=== PATIENT | male | born 1980 | race Caucasian/White ===

== ENCOUNTER 2024-08-19 07:53 | Day surgery (SDC) | payer MEDICARE, SELFPAY ==
[2024-08-19 08:15] VITALS: BP 126/77; PULSE 93; RESP 16; TEMP 36.8; O2SAT 95; BMI 25.8
[2024-08-19] MEDS: sodium chloride 0.9% 500 ML 15 ML IV (08:22)
--- NOTE | 2024-08-19 08:48 | ANES.PREANE2 ---
Pre-Anesthetic Assessment Height/Weight: Height 5 ft 10 in Weight 180 lb Temp Pulse Resp BP Pulse Ox O2 Del Method 98.3 F 93 16 126/77 95 Room Air 08/19/24 08:15 08/19/24 08:15 08/19/24 08:15 08/19/24 08:15 08/19/24 08:15 08/19/24 08:15 Preop Diagnosis: Screening colonoscopy Operation Date: 08/19/24 09:00 Proposed Procedures p Colonoscopy 33339, G0121, Z12.11(Not Applicable) - Parminder Winters MD Was Beta Srinivasa taken within 24 hours: N/A Was Clonidine taken within 24 hours: N/A Last intake: Intake Last Liquid Date 08/18/24 Last Liquid Time 16:00 Last Solid Date 08/17/24 Last Solid Time 18:00 Social Tobacco and No alcohol Exam alert, oriented x 3 and regular rate & rhythm Decreased breath sounds bilaterally Airway Submandibular: within normal limits Cervical ROM: within normal limits Mallampati: Class II Comments: Comments: Edentulous Anesthetic Plan ASA status: 3 Anesthesia: MAC Other: Patient denies any history of anesthesia issues Completed bowel prep Patient has a history of CHF, follows with cardiology. Recent echo was unremarkable he says but was told he had a small murmur. History of hypertension on lisinopril and metoprolol. Patient does admit to having a small cold, states he has a little congestion. Denies any fevers or chills. Diminished breath sounds bilaterally but no rhonchi or wheezing noted GERD on omeprazole Patient does admit to smoking nicotine and marijuana LACEY no treatment METs greater than 4 Plan for MAC anesthetic Medications/Allergies Home Medications ?Medication ?Instructions ?Recorded ?Confirmed ?Last Taken ?Type albuterol sulfate 90 mcg/actuation 2 puff inhalation QID PRN 08/07/24 08/14/24 08/18/24 History aerosol inhaler (Ventolin HFA) Shortness Of Breath cyclobenzaprine 10 mg tablet 10 mg PO BID PRN Spasms 08/07/24 08/14/24 08/18/24 History escitalopram oxalate 20 mg tablet 20 mg PO DAILY 08/07/24 08/14/24 08/18/24 History furosemide 40 mg tablet 40 mg PO DAILY 08/07/24 08/14/24 08/18/24 History lisinopril 40 mg tablet 40 mg PO DAILY 08/07/24 08/14/24 08/18/24 History meloxicam 7.5 mg tablet 7.5 mg PO BID 08/07/24 08/14/24 08/18/24 History metoprolol tartrate 25 mg tablet 25 mg PO DAILY 08/07/24 08/19/24 08/19/24 History omeprazole 20 mg capsule,delayed 20 mg PO BID 08/07/24 08/14/24 08/18/24 History release aspirin 81 mg tablet,delayed 81 mg PO DAILY 08/14/24 08/14/24 08/18/24 History release diphenhydramine HCl 50 mg capsule 100 mg PO BEDTIME 08/14/24 08/14/24 08/18/24 History igviyzyt-oi-fawez 300 mcg-K 60 1 tab PO DAILY 08/14/24 08/14/24 08/18/24 History mcg-lycop 600 mcg-lutein 300 mcg tablet (Men 50 Plus Multivitamin) Allergies Allergy/AdvReac Type Severity Reaction Status Date / Time codeine Allergy ALGY-Rash Verified 08/14/24 12:30 Penicillins Allergy ALGY-Rash Verified 08/14/24 12:30 Current Medications Generic Name Dose Route Start Last Admin Trade Name Freq PRN Reason Stop Dose Admin Sodium Chloride 500 mls @ 15 mls/hr 08/19/24 08:10 08/19/24 08:22 Sodium Chloride 0.9% IV 08/20/24 08:09 15 mls/hr .Q24H PRN Administration COLONOSCOPY FLUIDS PFSH Anesthesia Family History (Updated 08/07/24 @ 08:45 by ELHAM Wiggins) Father Heart disease Cancer prostate Diabetes Social History (Updated 08/07/24 @ 08:38 by ELHAM Wiggins) Smoking and tobacco/nicotine status: current every day tobacco/nicotine user cigarettes Data Anesthesia Cardiac Studies: No Data to Display
--- NOTE | 2024-08-19 09:03 | W.PM.OPSUD ---
Surgery/Procedure H&P Update DATE OF PROCEDURE: August 19, 2024 DATE H&P PERFORMED: 08/07/24 H&P UPDATE INFORMATION: I have reviewed H&P completed within last 30 days, I have examined patient prior to procedure and No changes to prior documentation PREOP DIAGNOSIS: Screening colonoscopy PLANNED PROCEDURE: Operation Date: 08/19/24 09:00 Proposed Procedures p Colonoscopy 30390, G0121, Z12.11(Not Applicable) - Parminder Winters MD
--- NOTE | 2024-08-19 09:04 | ANES.PREANE2 ---
Pre-Anesthetic Assessment Height/Weight: Height 1.78 m Weight 81.647 kg Temp Pulse Resp BP Pulse Ox O2 Del Method 98.3 F 93 16 126/77 95 Room Air 08/19/24 08:15 08/19/24 08:15 08/19/24 08:15 08/19/24 08:15 08/19/24 08:15 08/19/24 08:15 Preop Diagnosis: Screening colonoscopy Operation Date: 08/19/24 09:00 Proposed Procedures p Colonoscopy 87719, G0121, Z12.11(Not Applicable) - Parminder Winters MD Was Beta Srinivasa taken within 24 hours: Yes Last intake: Intake Last Liquid Date 08/18/24 Last Liquid Time 16:00 Last Solid Date 08/17/24 Last Solid Time 18:00 Social Tobacco (Occasional ETOH) Exam alert, oriented x 3, clear to auscultation bilaterally and regular rate & rhythm Distant hear tones Airway Submandibular: within normal limits Cervical ROM: within normal limits Mallampati: Class II Comments: Comments: Poor dentition Pulmonary Smoker CV/HEM Congestive Heart Failure and Murmur Pt. reports history of CHF 15+ years ago, takes medication as prescribed has not followed cardiology however reports having an echocardiogram done 3 months ago that was normal aside from a murmur . Pt. tolerates activity able to climb stairs without stopping denied CP/SOB Hepatic None reported GI Gastroesophageal Reflux Disease (Well controlled with prilosec) Metabolic None reported Neuropsych None reported Anesthetic Plan ASA status: 3 Anesthesia: MAC Medications/Allergies Home Medications ?Medication ?Instructions ?Recorded ?Confirmed ?Last Taken ?Type albuterol sulfate 90 mcg/actuation 2 puff inhalation QID PRN 08/07/24 08/14/24 08/18/24 History aerosol inhaler (Ventolin HFA) Shortness Of Breath cyclobenzaprine 10 mg tablet 10 mg PO BID PRN Spasms 08/07/24 08/14/24 08/18/24 History escitalopram oxalate 20 mg tablet 20 mg PO DAILY 08/07/24 08/14/24 08/18/24 History furosemide 40 mg tablet 40 mg PO DAILY 08/07/24 08/14/24 08/18/24 History lisinopril 40 mg tablet 40 mg PO DAILY 08/07/24 08/14/24 08/18/24 History meloxicam 7.5 mg tablet 7.5 mg PO BID 08/07/24 08/14/24 08/18/24 History metoprolol tartrate 25 mg tablet 25 mg PO DAILY 08/07/24 08/19/24 08/19/24 History omeprazole 20 mg capsule,delayed 20 mg PO BID 08/07/24 08/14/24 08/18/24 History release aspirin 81 mg tablet,delayed 81 mg PO DAILY 08/14/24 08/14/24 08/18/24 History release diphenhydramine HCl 50 mg capsule 100 mg PO BEDTIME 08/14/24 08/14/24 08/18/24 History jcjuibrh-zo-jdzbm 300 mcg-K 60 1 tab PO DAILY 08/14/24 08/14/24 08/18/24 History mcg-lycop 600 mcg-lutein 300 mcg tablet (Men 50 Plus Multivitamin) Allergies Allergy/AdvReac Type Severity Reaction Status Date / Time codeine Allergy ALGY-Rash Verified 08/14/24 12:30 Penicillins Allergy ALGY-Rash Verified 08/14/24 12:30 Current Medications Generic Name Dose Route Start Last Admin Trade Name Freq PRN Reason Stop Dose Admin Sodium Chloride 500 mls @ 15 mls/hr 08/19/24 08:10 08/19/24 08:22 Sodium Chloride 0.9% IV 08/20/24 08:09 15 mls/hr .Q24H PRN Administration COLONOSCOPY FLUIDS PFSH Anesthesia Family History (Updated 08/07/24 @ 08:45 by ELHAM Wiggins) Father Heart disease Cancer prostate Diabetes Social History (Updated 08/07/24 @ 08:38 by ELHAM Wiggins) Smoking and tobacco/nicotine status: current every day tobacco/nicotine user cigarettes Data Anesthesia Cardiac Studies: No Data to Display
[2024-08-19 09:51] VITALS: BP 106/72; PULSE 84; RESP 16; TEMP 36.5; O2SAT 94
[2024-08-19 10:04] VITALS: BP 98/64; PULSE 83; RESP 16; O2SAT 95
[2024-08-19 10:14] VITALS: BP 105/77; PULSE 77; RESP 16; O2SAT 97
--- NOTE | 2024-08-19 10:18 | ANE.PACU2 ---
Inpatient post-anesthesia follow up: Airway intact: Yes Vital signs: Temperature 97.7 F Pulse Rate 77 Respiratory Rate 16 Blood Pressure 105/77 Pulse Oximetry 97 Oxygen Delivery Me thod Room Air Oxygen Flow Rate Fraction of Inspir ed Oxygen Hydration adequate: Yes Nausea and vomiting: No Pain level: 1 Mental status: Baseline
== END 2024-08-19 10:19 | disposition home or self-care (01) ==
PROVIDERS: PCP Nurse Practitioner Family; Visit Provider Student in an Organized Health Care Education/Training Program
PROC: 0DJD8ZZ Inspection of Lower Intestinal Tract, Via Natural or Artificial Opening Endoscopic (ICD-10-PCS; CPT 45378; principal; 2024-08-19 09:00)
DX: K63.5 Polyp of colon (principal); R19.5 Other fecal abnormalities; K57.30 Diverticulosis of large intestine without perforation or abscess without bleeding; K21.9 Gastro-esophageal reflux disease without esophagitis; F17.210 Nicotine dependence, cigarettes, uncomplicated; G47.33 Obstructive sleep apnea (adult) (pediatric); I11.0 Hypertensive heart disease with heart failure; I50.9 Heart failure, unspecified; Z79.899 Other long term (current) drug therapy; Z79.82 Long term (current) use of aspirin; Z88.0 Allergy status to penicillin; Z88.5 Allergy status to narcotic agent
CPT/HCPCS: 45380; 45385; 88305; J2704; J7040

== ENCOUNTER → 2024-09-05 09:30 | Outpatient (BNVA) | payer MEDICARE, SELFPAY | PROVIDERS: PCP Nurse Practitioner Family; Visit Provider Student in an Organized Health Care Education/Training Program | DX: Z12.11 Encounter for screening for malignant neoplasm of colon (principal) | CPT/HCPCS: 99213 ==